=== PATIENT | female | born 1980 | race African-American/Black ===

== ENCOUNTER 2023-07-17 14:08 | Emergency (ER) | payer OTHER ==
[~2023-07-17] VITALS: Ht 165.1 cm; Wt 108.9 kg
[2023-07-17 16:53] LABS: URINE APPEARANCE Clear; URINE BILIRRUBIN Negative (NEGATIVE); URINE BLOOD Negative; URINE COLOR Yellow; URINE GLUCOSE Negative (NEGATIVE); URINE LEUKOCYTE Negative; URINE NITRATE Negative; URINE PROTEIN Negative (NEGATIVE); URINE UROBILINOGEN 0.2 E.U./dl
[2023-07-17 16:56] LABS: HEMATOCRIT 30.8 % (36.0-45.00); HEMOGLOBIN 10.5 g/dL (12.0-15.00); MEAN CELL VOLUME 88.6 fL (80.00-100.00); MEAN CORPUSCULAR HEMOGLOBIN 30.3 pg (27.00-32.0); MEAN CORPUSCULAR HGB CONC 34.2 g/dl (32.0-36.0); PLATELET COUNT 278 K/uL (150-450); RED BLOOD COUNT 3.48 M/uL (4.00-6.00); RED CELL DISTRIBUTION WIDTH 15.8 % (11.5-14.5)
[2023-07-17 16:56] LABS: URINE BACTERIA 25.1 uL (0.0-1933); URINE RBC 2.4 uL (0.0-20.8); URINE WBC 2.1 uL (0.0-23.2)
[2023-07-17 17:44] LABS: CALCIUM 8.7 mg/dL (8.5-10.1); CREATININE SERUM 0.9 mg/dL (0.55-1.02); GFR 68.34; POTASSIUM 4.29 mEq/L (3.5-5.1)
[2023-07-17] MEDS ORDERED: CARAFATE1 GM/10 ML PO (18:22)
[2023-07-17] MEDS ORDERED: ZOFRAN8 MG PO (18:22)
== END 2023-07-17 18:58 | disposition home or self-care (01) ==
LOC: ER 14:08
PROVIDERS: General Practice
DX: K29.00 Acute gastritis without bleeding (principal)